=== PATIENT | female | born 1985 | race Caucasian/White ===

== ENCOUNTER 2021-07-25 04:09 | Emergency (ER) | payer OTHER ==
[2021-07-25] MEDS: Take Home: Amoxicillin/Clavulanate K 875-125 MG Tab, 2 Tab Pack PO ONE (04:27)
[2021-07-25] MEDS: Take Home: Acetaminophen/HYDROcodone 325-5 MG, 5 Tab Pack PO ONE (04:27)
== END 2021-07-25 04:30 | disposition home or self-care (01) ==
LOC: VM.ED 04:09
DX: K04.7 Periapical abscess without sinus (principal)
CPT/HCPCS: 99282; 99283; A9270-GY